=== PATIENT | female | born 1970 | race Caucasian/White ===

== ENCOUNTER → 2017-08-14 | Outpatient (CLI) | payer BC | LOC: M WHC 15:32 | DX: Z12.31 Encounter for screening mammogram for malignant neoplasm of breast (principal) | CPT/HCPCS: 77067 ==

== ENCOUNTER → 2018-07-04 | Outpatient (CLI) | payer BC ==
[2018-07-04 19:44] LABS: ALBUMIN 3.8 GM/DL (3.2-5.2); ALBUMIN/GLOBULIN RATIO 1.41 (1.00-1.93); ALKALINE PHOSPHATASE 94 U/L (45-117); ALT/SGPT 30 U/L (12-78); ANION GAP 7 MEQ/L (8-16); AST/SGOT 19 U/L (7-37); BILIRUBIN,TOTAL 0.3 MG/DL (0.2-1.0); BLOOD UREA NITROGEN 21 MG/DL (7-18); CALCIUM LEVEL 8.7 MG/DL (8.5-10.1); CARBON DIOXIDE LEVEL 27 MEQ/L (21-32); CHLORIDE LEVEL 109 MEQ/L (98-107); CREATININE FOR GFR 1.08 MG/DL (0.55-1.30); GLOMERULAR FILTRATION RATE 57.4 (>58); GLUCOSE, FASTING 110 MG/DL (70-100); POTASSIUM SERUM 4.1 MEQ/L (3.5-5.1); SODIUM LEVEL 143 MEQ/L (136-145); TOTAL PROTEIN 6.5 GM/DL (6.4-8.2)
[2018-07-04 19:46] LABS: BASO # 0.1 10^3/uL (0.0-0.2); BASO % 0.7 % (0.0-1.0); EOS # 0.4 10^3/uL (0.0-0.50); EOS % 6.4 % (0.0-3.0); HEMATOCRIT 41.2 % (36.0-47.0); HEMOGLOBIN 13.7 g/dl (12.0-15.5); IMMATURE GRANULOCYTE % 0.7 % (0-3.0); LYMPH # 2.3 10^3/uL (1.5-4.5); LYMPH % 34.5 % (24.0-44.0); MEAN CORPUSCULAR HEMOGLOBIN 29.7 pg (27.0-33.0); MEAN CORPUSCULAR HGB CONC 33.3 g/dl (32.0-36.5); MEAN CORPUSCULAR VOLUME 89.4 fl (80.0-96.0); MONO # 0.5 10^3/uL (0.0-0.8); MONO % 7.9 % (0.0-5.0); NEUTROPHILS # 3.3 10^3/uL (1.8-7.7); NEUTROPHILS % 49.8 % (36.0-66.0); PLATELET COUNT, AUTOMATED 274 10^3/uL (150-450); RED BLOOD COUNT 4.61 10^6/uL (4.00-5.40); WHITE BLOOD COUNT 6.7 10^3/uL (4.0-10.0)
== END ==
LOC: M WUC 17:48
DX: R10.11 Right upper quadrant pain (principal)
CPT/HCPCS: 80053

== ENCOUNTER → 2018-07-05 | Outpatient (CLI) | payer BC | LOC: M RAD 08:32 | DX: K76.89 Other specified diseases of liver (principal); R10.11 Right upper quadrant pain | CPT/HCPCS: 76705 ==

== ENCOUNTER → 2018-08-15 | Outpatient (CLI) | payer BC ==
--- NOTE | 2018-08-16 08:21 | REPMRS ---
Patient History The patient states she has not had a clinical breast exam in over a year. Patient is postmenopausal. Family history of endometrial cancer at age 50 or over in maternal aunt, prostate cancer at age 50 or over in paternal grandfather, prostate cancer in maternal grandfather. No Hormone Replacement Therapy Digital Woman Screen Mammo: August 15, 2018 - Exam #: [id number] Bilateral CC and MLO view(s) were taken. Technologist: Sumi Mendez, Technologist Prior study comparison: August 14, 2017, digital woman screen mammo performed at [facility]. August 04, 2016, digital woman screen mammo performed at [facility]. July 27, 2015, digital woman screen mammo performed at [facility]. FINDINGS: The breast tissue is almost entirely fat. There has been no change in the appearance of the mammogram from the prior studies. There is no interval development of dominant mass, architectural distortion, or clustered microcalcification typical of malignancy. 3-D tomosynthesis shows no additional findings. Assessment: BI-RADS/ACR category 1 mammogram. Negative. Recommendation Routine screening mammogram of both breasts in 1 year (for women over age 40). This patient's Lifetime Breast Cancer RIsk is estimated at 4.6 %. This mammogram was interpreted with the aid of an FDA-approved computer-aided dectection system. Electronically Signed By: Isaac Izquierdo MD 08/16/18 0821
== END ==
LOC: M WHC 16:14
PROVIDERS: ATTEND Nurse Practitioner Adult Health
DX: Z12.31 Encounter for screening mammogram for malignant neoplasm of breast (principal); Z78.0 Asymptomatic menopausal state

== ENCOUNTER → 2018-11-19 | Outpatient (CLI) | payer BC ==
[~2018-11-19] MED LIST: E-Z-GAS II EFFERVESCENT PACKET (SODIUM BICARB./CITRIC ACID/SIMETHICONE) As Ordered ONE; E-Z-HD 98% w/w 340GM SUSP BTL As Ordered ONE; E-Z-PAQUE 96% w/w SUSP 176GM BTL As Ordered ONE
--- NOTE | 2018-11-19 17:26 | REP ---
Upper GI air contrast The procedure was performed under the direct supervision of Dr. Izquierdo. The images were reviewed with Dr. Izquierdo The line supply film shows no organomegaly or pathological masses. The intestinal gas pattern is non-specific. There are surgical clips noted in the mid abdomen bilaterally. Liquid barium and gas producing crystals were given in the erect position as well as liquid barium in the prone oblique position in order to perform a double contrast upper GI examination. The oral and pharyngeal stages of deglutition are unremarkable. Esophageal transport is prompt and efficient and there is no esophagitis, stricture, mucosal ring or hiatal hernia. There is gastroesophageal reflux demonstrated to above the level of the [place]inth[place]. The stomach castro are normally outlined . The rugal folds are smooth and regular. There is no gastritis neoplasm or ulcer disease. There are thickened folds in the duodenum which may represent duodenitis. There is no sherin ulcer identified. The visualized portion of the proximal small bowel appears normal in course and caliber. Impression: 1. There is gastroesophageal reflux demonstrated to above the level of the cinth[place]. 2. There are thickened folds in the duodenum which may represent duodenitis. There is no sherin ulcer identified. 1.4 minutes of fluoro time was utilized for this procedure. Reviewed by TONY Patel 11/19/2018 04:03 P Electronically Signed by Tristen Izquierdo MD 11/19/2018 05:17 P
== END ==
LOC: M RAD 10:41
PROVIDERS: ATTEND Nurse Practitioner Adult Health
DX: R10.9 Unspecified abdominal pain (principal)

== ENCOUNTER → 2020-03-11 | Outpatient (CLI) | payer BC ==
[2020-04-27 13:12] LABS: ANTINUCLEAR ANTIBODIES DIRECT See Separate Report
[2020-05-08 16:07] LABS: ALBUMIN 3.6 GM/DL (3.2-5.2); ALT/SGPT 30 U/L (12-78); BILIRUBIN,TOTAL 0.4 MG/DL (0.2-1.0); BLOOD UREA NITROGEN 12 MG/DL (7-18); CALCIUM LEVEL 8.7 MG/DL (8.5-10.1); CARBON DIOXIDE LEVEL 28 MEQ/L (21-32); CHLORIDE LEVEL 114 MEQ/L (98-107); GLOMERULAR FILTRATION RATE > 60.0 (>51); POTASSIUM SERUM 4.2 MEQ/L (3.5-5.1); RHEUMATOID FACTOR QUANT < 10.0 IU/ML (<15.0); SODIUM LEVEL 145 MEQ/L (136-145); TOTAL 25(OH) VITAMIN D 27.4 NG/ML (30.0-100.0); TOTAL PROTEIN 6.4 GM/DL (6.4-8.2); URIC ACID 3.7 MG/DL (2.6-6.0)
[2020-05-08 16:09] LABS: GLUCOSE, FASTING 110 MG/DL (70-100)
== END ==
LOC: M LAB 07:07
PROVIDERS: ATTEND Nurse Practitioner Adult Health
DX: E55.9 Vitamin D deficiency, unspecified (principal); Z13.220 Encounter for screening for lipoid disorders; Z13.29 Encounter for screening for other suspected endocrine disorder; M79.10 Myalgia, unspecified site

== ENCOUNTER → 2020-04-14 | Outpatient (CLI) | payer BC ==
--- NOTE | 2020-04-14 16:15 | REPMRS ---
Patient History The patient states she has not had a clinical breast exam in over a year. Family history of endometrial cancer at age 50 or over in maternal aunt, prostate cancer at age 50 or over in paternal grandfather, prostate cancer in maternal grandfather. No Hormone Replacement Therapy 3D TOMOSYNTHESIS WAS PERFORMED. The [facility] lifetime risk for breast cancer is 4.5%. WILLIAMS Blandon. Digital Woman Screen Mammo: April 14, 2020 - Exam #: [id number] Bilateral CC and MLO view(s) were taken. Technologist: Ladan Beckett, Technologist Prior study comparison: August 15, 2018, bilateral digital woman screen mammo performed at [facility]. August 14, 2017, digital woman screen mammo performed at [facility]. FINDINGS: There are scattered fibroglandular densities. There is a fairly symmetric fibroglandular pattern in both breasts. There has been no interval development of masses, areas of architectural distortion or clusters of microcalcifications typical of malignancy. There are small intramammary lymph nodes again seen on the left. Assessment: BI-RADS/ACR category 2 mammogram. Benign Findings. Recommendation Routine screening mammogram of both breasts in 1 year (for women over age 40). This mammogram was interpreted with the aid of an FDA-approved computer-aided dectection system. Electronically Signed By: Carlos Zavala MD 04/14/20 0769
--- NOTE | 2020-04-29 15:37 | DEXA ---
AP SPINE L1 - L4 1.022 -1.4 -0.9 LT FEMUR TOTAL 0.906 -0.8 -0.3 LT NECK 0.825 -1.5 -0.7 RT FEMUR TOTAL 0.879 -1.0 -0.5 RT NECK 0.796 -1.7 -0.9 TOTAL BODY TOTAL OTHER COMMENTS: There is low bone density of the spine and hips. The density of the spine has decreased 1.4% since the initial exam on 08/01/2004. The increased 0.9% since most recent exam on 06/21/2012. The density of the left hip has increased 2.6% since the initial exam on 08/01/2004. The density of the left hip has increased 1.2% since the most recent exam on 06/21/2012. The density of the right hip has increased 4.0% since the initial exam on 08/01/2004. The density of the right hip has increased 1.9% since the most recent exam on 06/21/2012. FOLLOW-UP: Recommendation for the next bone density exam: 2 years. VERONICA
== END ==
LOC: M WHC 15:29
PROVIDERS: ATTEND Nurse Practitioner Adult Health
DX: Z12.31 Encounter for screening mammogram for malignant neoplasm of breast (principal); Z13.820 Encounter for screening for osteoporosis

== ENCOUNTER → 2020-10-02 | Outpatient (CLI) | payer BC ==
[~2020-10-02] MED LIST changes: -E-Z-GAS II EFFERVESCENT PACKET (SODIUM BICARB./CITRIC ACID/SIMETHICONE) As Ordered ONE; -E-Z-HD 98% w/w 340GM SUSP BTL As Ordered ONE; -E-Z-PAQUE 96% w/w SUSP 176GM BTL As Ordered ONE; +IBUP80TA PO; +PROTPAK PO
== END ==
LOC: M LABSMTC 08:17
PROVIDERS: ATTEND Anesthesiology
DX: Z01.812 Encounter for preprocedural laboratory examination (principal); Z20.822 Contact with and (suspected) exposure to COVID-19

== ENCOUNTER 2020-10-07 10:47 | Day surgery (SDC) | payer BC ==
[~2020-10-07] VITALS: Ht 157.5 cm; Wt 77.1 kg
[~2020-10-07 10:47] MED LIST changes: +LIDOCAINE 2% 100MG/5ML SDV (FOR ANES.) As Ordered ONE; +NS 1,000 ML IV ONE; +fentaNYL 100 MCG/2 ML INJECTION (J3010) As Ordered ONE; +propofoL 200 MG/20 ML VIAL As Ordered ONE
--- NOTE | 2020-10-07 12:43 | ROOR ---
Patient Name: Blessing Khan Procedure Date: 10/07/2020 12:29 PM Date of : 1970 Age: 49 Room: [facility] Gender: Female Note Status: Finalized Procedure: Upper GI endoscopy Indications: Dyspepsia, Heartburn, Abnormal UGI series Providers: Germán JONES MD Referring MD: Olga Ruiz NP Requesting Provider: Medicines: Monitored Anesthesia Care Complications: No immediate complications. Procedure: Pre-Anesthesia Assessment: - The heart rate, respiratory rate, oxygen saturations, blood pressure, adequacy of pulmonary ventilation, and response to care were monitored throughout the procedure. The Endoscope was introduced through the mouth, and advanced to the third part of duodenum. The upper GI endoscopy was accomplished without difficulty. The patient tolerated the procedure well. Findings: The esophagus was normal. The stomach was normal. The examined duodenum was normal. Three biopsies were obtained in the gastric antrum, in the first portion of the duodenum and in the second portion of the duodenum with cold forceps for histology. Impression: - Normal esophagus. - Normal stomach. - Normal examined duodenum. - Three biopsies were obtained in the gastric antrum, in the first portion of the duodenum and in the second portion of the duodenum. Recommendation: - Await pathology results. - Telephone endoscopist for pathology results in 2 weeks. - Follow an antireflux regimen. - Continue present medications. Procedure Code(s): --- Professional --- 41673, Esophagogastroduodenoscopy, flexible, transoral; with biopsy, single or multiple Diagnosis Code(s): --- Professional --- R93.3, Abnormal findings on diagnostic imaging of other parts of digestive tract R12, Heartburn R10.13, Epigastric pain CPT copyright 2019 [employer]. All rights reserved. The codes documented in this report are preliminary and upon solid tire finisher review may be revised to meet current compliance requirements. Germán Jones MD Germán JONES MD 10/07/2020 12:43:13 PM Electronically signed by Germán JONES MD Number of Addenda: 0 Note Initiated On: 10/07/2020 12:29 PM Estimated Blood Loss: Estimated blood loss: none.
--- NOTE | 2020-10-07 13:05 | ROOR ---
Patient Name: Blessing Khan Procedure Date: 10/07/2020 12:30 PM Date of : 1970 Age: 49 Room: [facility] Gender: Female Note Status: Finalized Procedure: Colonoscopy Indications: Screening for colorectal malignant neoplasm Providers: Germán JONES MD Referring MD: Olga Ruiz NP Requesting Provider: Medicines: Monitored Anesthesia Care Complications: No immediate complications. Procedure: Pre-Anesthesia Assessment: - The heart rate, respiratory rate, oxygen saturations, blood pressure, adequacy of pulmonary ventilation, and response to care were monitored throughout the procedure. The Colonoscope was introduced through the anus and advanced to the terminal ileum, with identification of the appendiceal orifice and IC valve. The colonoscopy was performed without difficulty. The patient tolerated the procedure well. The quality of the bowel preparation was good. Findings: The perianal and digital rectal examinations were normal. Three sessile polyps were found in the splenic flexure, hepatic flexure and cecum. The polyps were 5 mm in size. These polyps were removed with a cold snare. Resection and retrieval were complete. Small Internal Hemorrhoids. The exam was otherwise without abnormality on direct and retroflexion views. Impression: - Three 5 mm polyps at the splenic flexure, at the hepatic flexure and in the cecum, removed with a cold snare. Resected and retrieved. - Small Internal Hemorrhoids. - The examination was otherwise normal on direct and retroflexion views. Recommendation: - Repeat colonoscopy in 3 years for surveillance. Procedure Code(s): --- Professional --- 47827, Colonoscopy, flexible; with removal of tumor(s), polyp(s), or other lesion(s) by snare technique Diagnosis Code(s): --- Professional --- K63.5, Polyp of colon Z12.11, Encounter for screening for malignant neoplasm of colon CPT copyright 2019 [employer]. All rights reserved. The codes documented in this report are preliminary and upon beauty counselor review may be revised to meet current compliance requirements. Germán Jones MD Germán JONES MD 10/07/2020 1:04:30 PM Electronically signed by Germán JONES MD Number of Addenda: 0 Note Initiated On: 10/07/2020 12:30 PM Estimated Blood Loss: Estimated blood loss: none.
[2020-10-07 13:41] VITALS: BP 118/74
== END 2020-10-07 13:43 | disposition home or self-care (01) ==
LOC: M OPP 10:47
PROVIDERS: ATTEND Internal Medicine Gastroenterology
DX: Z12.11 Encounter for screening for malignant neoplasm of colon (principal); K63.5 Polyp of colon; K64.8 Other hemorrhoids; R93.3 Abnormal findings on diagnostic imaging of other parts of digestive tract; R10.13 Epigastric pain; K21.9 Gastro-esophageal reflux disease without esophagitis; Z79.899 Other long term (current) drug therapy; Z88.0 Allergy status to penicillin
CPT/HCPCS: 43239; 45385; 88305; J3010

== ENCOUNTER → 2020-11-15 | Outpatient (REF) ==
[~2020-11-15] MED LIST changes: -LIDOCAINE 2% 100MG/5ML SDV (FOR ANES.) As Ordered ONE; -NS 1,000 ML IV ONE; -fentaNYL 100 MCG/2 ML INJECTION (J3010) As Ordered ONE; -propofoL 200 MG/20 ML VIAL As Ordered ONE
== END ==
LOC: M LABSMTC 11:28
PROVIDERS: ATTEND Pediatrics
DX: Z11.52 Encounter for screening for COVID-19 (principal)

== ENCOUNTER → 2021-02-21 | Outpatient (REF) | payer BC | LOC: M LAB REF 20:07 | PROVIDERS: ATTEND Physician Assistant | DX: N39.0 Urinary tract infection, site not specified (principal) ==

== ENCOUNTER → 2021-02-22 | Outpatient (REF) | payer BC | LOC: M LAB REF 14:44 | PROVIDERS: ATTEND Physician Assistant | DX: N39.0 Urinary tract infection, site not specified (principal) ==

== ENCOUNTER → 2021-02-28 | Outpatient (CLI) | payer BC ==
--- NOTE | 2021-02-28 10:59 | REP ---
INDICATION: LOWER ABDOMINAL PAIN. COMPARISON: Ultrasound right upper quadrant 07/05/2018 TECHNIQUE: Noncontrast scanning through the abdomen/pelvis with coronal and sagittal reconstructions. FINDINGS: CT abdomen: There is a 5 mm pleural base nodule lateral basal segment the right lower lobe in the posterior axillary line. Some minor curvilinear fibrotic change in the medial segment of the right middle lobe anterior right lung base. There is also a 5 mm subpleural nodule in the lateral basal segment of the left lower lobe. Heart is not enlarged there is no pericardial thickening or effusion. No hiatal hernia. The liver shows a 7 mm hypodensity in the right hepatic lobe posteriorly and inferiorly corresponding to ultrasound finding three years ago. The remainder of the liver, spleen, gallbladder, stomach, pancreas, adrenal glands in the abdominal course of the small bowel loops appeared unremarkable. The kidneys show no mass, cyst, stone or hydronephrosis. No hydroureter or stone. Stool and gas in the abdominal portion of colon without signs of colitis or diverticulitis noted. There are few scattered surgical clips in the anterior mid abdomen near the junction of the Paddock flexure and transverse colon as well as at the distal tip of the cecum. No aortic aneurysm, periaortic, other retroperitoneal or mesenteric pathologic sized lymphadenopathy abdominal course of the colon without colitis or diverticulitis and no stricture or mass. See no evidence of perforation or free air in the abdomen and pelvis on lung windows review of all slices. Bone window review shows the the spine with some minor age-related changes and no acute compression deformity or destructive lesion. Visualized ribs intact. CT pelvis: The bony sacrum, SI joints, pelvis and hips show no acute finding. Small bone island in the posterior acetabular column on the right as a benign finding. The distal left colon, sigmoid and rectum were unremarkable. Distal small bowel loops intact with clips at the cecal tip. No visible appendix seen. Uterus absent and the vaginal cuff intact. Bladder shows no mass, wall thickening, stone or dilatation of distal ureters adjacent to it in the deep pelvis. No pelvic mass or lymphadenopathy. There is no ventral or inguinal hernia nor pathologic sized inguinal adenopathy. Small bowel loops deep pelvis were unremarkable. IMPRESSION: 1. No CT evidence of renal, ureteral or bladder stone. No hydronephrosis or hydroureter. Kidneys without mass or other acute finding. 2. Other solid organs in the upper abdomen, gallbladder, stomach, colon and small bowel loops intact. No ascites or free air. <Electronically signed by Kyrie Parsons > 02/28/21 [id number]
== END ==
LOC: M RAD 09:26
PROVIDERS: ATTEND Physician Assistant
DX: R10.30 Lower abdominal pain, unspecified (principal); M54.5 Low back pain

== ENCOUNTER → 2021-03-10 | Outpatient (CLI) | payer BC ==
[2021-03-10 08:08] LABS: HEMATOCRIT 44.5 % (36.0-47.0); HEMOGLOBIN 14.8 g/dl (12.0-15.5); MEAN CORPUSCULAR HEMOGLOBIN 29.4 pg (27.0-33.0); MEAN CORPUSCULAR HGB CONC 33.3 g/dl (32.0-36.5); MEAN CORPUSCULAR VOLUME 88.5 fl (80.0-96.0); PLATELET COUNT, AUTOMATED 293 10^3/uL (150-450); RED BLOOD COUNT 5.03 10^6/uL (4.00-5.40); WHITE BLOOD COUNT 6.3 10^3/uL (4.0-10.0)
[2021-03-10 08:42] LABS: ALBUMIN 3.6 GM/DL (3.2-5.2); BILIRUBIN,TOTAL 0.5 MG/DL (0.2-1.0); CHOLESTEROL RISK RATIO 4.875 (<5); CREATININE FOR GFR 1.05 MG/DL (0.55-1.30); GLOMERULAR FILTRATION RATE 58.6 (>51); POTASSIUM SERUM 4.4 MEQ/L (3.5-5.1); THYROID STIMULATING HORMONE 2.42 uIU/ML (0.358-3.740); TOTAL PROTEIN 6.6 GM/DL (6.4-8.2)
[2021-03-10 09:14] LABS: TOTAL 25(OH) VITAMIN D 24.2 NG/ML (30.0-100.0)
== END ==
LOC: M LAB 07:32
PROVIDERS: ATTEND Nurse Practitioner Adult Health
DX: E55.9 Vitamin D deficiency, unspecified (principal); Z13.29 Encounter for screening for other suspected endocrine disorder; Z13.220 Encounter for screening for lipoid disorders

== ENCOUNTER → 2021-03-25 | Outpatient (REF) | payer BC ==
[2021-03-25 10:30] LABS: APPEARANCE, URINE CLEAR (CLEAR); BACTERIA, URINE AUTO NEGATIVE (NEGATIVE); BILIRUBIN, URINE AUTO NEGATIVE (NEGATIVE); BLOOD, URINE BLOOD NEGATIVE (NEGATIVE); COLOR, URINE YELLOW (YELLOW); GLUCOSE, URINE (UA) AUTO NEGATIVE (NEGATIVE); KETONE, URINE AUTO NEGATIVE (NEGATIVE); LEUKOCYTE ESTERASE, URINE AUTO NEGATIVE (NEGATIVE); MUCUS, URINE SMALL (NEGATIVE); NITRITE, URINE AUTO NEGATIVE (NEGATIVE); PROTEIN, URINE AUTO NEGATIVE (NEGATIVE); RBC, URINE AUTO 1 /HPF (0-3); SPECIFIC GRAVITY URINE AUTO 1.017 (1.002-1.035); SQUAMOUS EPITHELIAL CELL UR AU 0 /HPF (0-6); UROBILINOGEN, URINE AUTO 0.2 mg/dL (0.0-2.0); WBC, URINE AUTO 0 /HPF (0-3)
== END ==
LOC: M SFHCPLAZ 09:29
PROVIDERS: ATTEND Nurse Practitioner Adult Health
DX: R31.9 Hematuria, unspecified (principal)

== ENCOUNTER → 2021-05-31 | Outpatient (CLI) | payer BC ==
--- NOTE | 2021-05-31 16:48 | REPMRS ---
Patient History The patient states she has not had a clinical breast exam in over a year. Family history of endometrial cancer at age 50 or over in maternal aunt, prostate cancer at age 50 or over in paternal grandfather, prostate cancer in maternal grandfather. No Hormone Replacement Therapy Patient states no breast complaints today. Patient has signed MRS History Sheet. Digital Woman Screen Mammo: May 31, 2021 - Exam #: [id number] Bilateral CC and MLO view(s) were taken. Technologist: Deb Boggs, Technologist Prior study comparison: April 14, 2020, bilateral digital woman screen mammo performed at [facility]. August 15, 2018, bilateral digital woman screen mammo performed at [facility]. FINDINGS: The breast tissue is almost entirely fat. Screening. Digital screening (2D) mammography was performed bilaterally in the CC and MLO projections. Additionally, breast tomosynthesis (3D mammography) was performed bilaterally in the CC and MLO projections. Todays exam was compared to the prior exam/exams. By history, the patient has no complaints of a palpable breast abnormality or other significant breast complaints. The Volpara volumetric breast density category is A, the breasts are almost entirely fatty. There are stable, benign, intramammary lymph nodes, bilaterally. The breasts are unchanged in size and shape. There are no lexie-soft tissue densities or spiculated masses. There is no internal architectural distortion. There are no suspicious lexie-calcific clusters. Skin thickening or nipple retraction is not present. IMPRESSION: BI-RADS Category 2- Benign Findings. There is no evidence of malignant alteration of the breasts. Followup examination recommended in one year. The lifetime Tyrer-Cuzick score is 4.4% This mammogram was read with the assistance of [employer],an FDA approved computer aided detection system for mammography. Negative x-ray reports should not delay surgical consultation if a dominant or clinically suspicious mass is present. Not all breast cancers can be identified by mammography. Therefore, we recommend that you continue to perform regular breast self-examination and physical examination and then promptly contact your physician of any concerns or changes. Adenosis and dense breasts may obscure an underlying neoplasm. No significant changes when compared with prior studies. Assessment: BI-RADS/ACR category 2 mammogram. Benign Findings. Recommendation Routine screening mammogram of both breasts in 1 year. Electronically Signed By: David Cervantes MD 05/31/21 [id number]
== END ==
LOC: M WHC 15:14
PROVIDERS: ATTEND Nurse Practitioner Adult Health
DX: Z12.31 Encounter for screening mammogram for malignant neoplasm of breast (principal)

== ENCOUNTER → 2022-06-15 | Outpatient (CLI) | payer BC | LOC: M WHC 15:50 | PROVIDERS: ATTEND Nurse Practitioner Adult Health | DX: Z12.31 Encounter for screening mammogram for malignant neoplasm of breast (principal) ==

== ENCOUNTER → 2022-06-21 | Outpatient (CLI) | payer BC ==
[2022-06-21 12:47] LABS: ALBUMIN 3.8 G/DL (3.2-5.2); ALT/SGPT 26 U/L (7.0-40); BILIRUBIN,TOTAL 0.6 MG/DL (0.3-1.2); BLOOD UREA NITROGEN 21 MG/DL (9-23); CALCIUM LEVEL 9.1 MG/DL (8.5-10.1); CARBON DIOXIDE LEVEL 26 MMOL/L (20-31); CHLORIDE LEVEL 107 MMOL/L (98-107); CHOLESTEROL LEVEL 204 MG/DL (<200); CHOLESTEROL RISK RATIO 3.96 (<5); CREATININE FOR GFR 1.01 MG/DL (0.55-1.30); GLOMERULAR FILTRATION RATE > 60.0 (>51); GLUCOSE, FASTING 110 MG/DL (60-100); HDL CHOLESTEROL 51.5 MG/DL (>40); LDL CHOLESTEROL 130.1 MG/DL (<100); NON-HDL-C 153 MG/DL; POTASSIUM SERUM 4.4 MMOL/L (3.5-5.1); SODIUM LEVEL 143 MMOL/L (136-145); THYROID STIMULATING HORMONE 2.303 uIU/ML (0.55-4.78); TOTAL 25(OH) VITAMIN D 68.2 NG/ML (20.0-100.0); TOTAL PROTEIN 6.4 G/DL (5.7-8.2); TRIGLYCERIDES LEVEL 112 MG/DL (<150)
== END ==
LOC: M LAB 08:15
PROVIDERS: ATTEND Nurse Practitioner Adult Health
DX: Z00.00 Encounter for general adult medical examination without abnormal findings (principal); R53.83 Other fatigue; E55.9 Vitamin D deficiency, unspecified; Z13.29 Encounter for screening for other suspected endocrine disorder

== ENCOUNTER → 2022-12-29 | Outpatient (REF) | LOC: M EMP 08:51 | PROVIDERS: ATTEND Family Medicine | DX: Z20.822 Contact with and (suspected) exposure to COVID-19 (principal) ==

== ENCOUNTER → 2023-05-15 | Outpatient (CLI) | payer BC ==
[2023-05-15 07:49] LABS: HEMATOCRIT 43.9 % (36.0-47.0); HEMOGLOBIN 14.8 g/dl (12.0-15.5); MEAN CORPUSCULAR HEMOGLOBIN 29.8 pg (27.0-33.0); MEAN CORPUSCULAR HGB CONC 33.7 g/dl (32.0-36.5); MEAN CORPUSCULAR VOLUME 88.5 fl (80.0-96.0); PLATELET COUNT, AUTOMATED 273 10^3/uL (150-450); RED BLOOD COUNT 4.96 10^6/uL (4.00-5.40)
[2023-05-15 08:15] LABS: ALKALINE PHOSPHATASE 80 U/L (46-116); ALT/SGPT 24 U/L (7.0-40); AST/SGOT 17 U/L (<34); BILIRUBIN,TOTAL 0.4 MG/DL (0.3-1.2); BLOOD UREA NITROGEN 16 MG/DL (9-23); CALCIUM LEVEL 8.6 MG/DL (8.5-10.1); CARBON DIOXIDE LEVEL 26 MMOL/L (20-31); CHLORIDE LEVEL 109 MMOL/L (98-107); CHOLESTEROL LEVEL 182 MG/DL (<200); CHOLESTEROL RISK RATIO 4.15 (<5); CREATININE FOR GFR 0.95 MG/DL (0.55-1.30); FREE T4 0.84 NG/DL (0.89-1.76); GLOMERULAR FILTRATION RATE > 60.0 (>51); GLUCOSE, FASTING 107 MG/DL (60-100); HDL CHOLESTEROL 43.8 MG/DL (>40); LDL CHOLESTEROL 107.2 MG/DL (<100); NON-HDL-C 138.2 MG/DL; POTASSIUM SERUM 4.4 MMOL/L (3.5-5.1); SODIUM LEVEL 139 MMOL/L (136-145); TOTAL 25(OH) VITAMIN D 33.5 NG/ML (20.0-100.0); TOTAL PROTEIN 6.2 G/DL (5.7-8.2); TRIGLYCERIDES LEVEL 155 MG/DL (<150)
[2023-05-15 15:56] LABS: ALBUMIN 3.5 G/DL (3.2-5.2)
== END ==
LOC: M LAB 07:02
PROVIDERS: ATTEND Nurse Practitioner Adult Health
DX: Z00.00 Encounter for general adult medical examination without abnormal findings (principal); E78.2 Mixed hyperlipidemia; E55.9 Vitamin D deficiency, unspecified

== ENCOUNTER → 2023-06-18 | Outpatient (CLI) | payer BC | LOC: M WHC 15:07 | PROVIDERS: ATTEND Nurse Practitioner Adult Health | DX: Z12.31 Encounter for screening mammogram for malignant neoplasm of breast (principal) ==

== ENCOUNTER → 2023-10-30 | Outpatient (CLI) | payer BC | LOC: M RAD 08:11 | PROVIDERS: ATTEND Nurse Practitioner Adult Health | DX: G43.911 Migraine, unspecified, intractable, with status migrainosus (principal) ==

== ENCOUNTER 2024-03-06 06:42 | Day surgery (SDC) | payer BC ==
[~2024-03-06] VITALS: Ht 157.5 cm; Wt 77.6 kg
[~2024-03-06 06:42] MED LIST changes: +AMIT10TA7 PO; +CINN500C12 PO; +IMIT50TA PO; +NS 1,000 ML IV ONE; +OMEG10002 PO; +THERTAB52 PO
[2024-03-06] MEDS ORDERED: propofoL 200 MG/20 ML VIAL As Ordered ONE (07:12)
[2024-03-06] MEDS ORDERED: LIDOCAINE 2% 100MG/5ML SDV (FOR ANES.) As Ordered ONE (07:13)
[2024-03-06] MEDS ORDERED: SIMETHICONE 40MG/0.6ML DROPS 30ML As Ordered ONE (07:15)
[2024-03-06 07:55] VITALS: TEMP 97.3
[2024-03-06] MEDS ORDERED: GLYCOPYRROLATE INJ 0.2 MG/ML 2 ML VIAL As Ordered ONE (08:11)
[2024-03-06 08:12] VITALS: BP 137/93; O2SAT 97
== END 2024-03-06 08:15 | disposition home or self-care (01) ==
LOC: M OPP 06:42
PROVIDERS: ATTEND Internal Medicine Gastroenterology
DX: Z12.11 Encounter for screening for malignant neoplasm of colon (principal); Z86.010 Personal history of colon polyps; D12.3 Benign neoplasm of transverse colon; G43.909 Migraine, unspecified, not intractable, without status migrainosus; Z79.1 Long term (current) use of non-steroidal anti-inflammatories (NSAID); Z79.899 Other long term (current) drug therapy; Z88.1 Allergy status to other antibiotic agents
CPT/HCPCS: 45385; 88305; J1596

== ENCOUNTER → 2024-07-14 | Outpatient (CLI) | payer BC ==
[~2024-07-14] MED LIST changes: -NS 1,000 ML IV ONE
[2024-07-14 07:58] LABS: HEMATOCRIT 44.2 % (36.0-47.0); HEMOGLOBIN 15.3 g/dl (12.0-15.5); MEAN CORPUSCULAR HEMOGLOBIN 30.4 pg (27.0-33.0); MEAN CORPUSCULAR HGB CONC 34.6 g/dl (32.0-36.5); MEAN CORPUSCULAR VOLUME 87.7 fl (80.0-96.0); PLATELET COUNT, AUTOMATED 269 10^3/uL (150-450); RED BLOOD COUNT 5.04 10^6/uL (4.00-5.40); WHITE BLOOD COUNT 6.2 10^3/uL (4.0-10.0)
[2024-07-14 08:27] LABS: ALBUMIN 3.5 G/DL (3.2-5.2); ALKALINE PHOSPHATASE 84 U/L (35-104); ALT/SGPT 38 U/L (7.0-40); AST/SGOT 16 U/L (<34); BILIRUBIN,TOTAL 0.3 MG/DL (0.3-1.2); BLOOD UREA NITROGEN 18 MG/DL (9-23); CALCIUM LEVEL 9.7 MG/DL (8.5-10.1); CARBON DIOXIDE LEVEL 26 MMOL/L (20-31); CHLORIDE LEVEL 109 MMOL/L (98-107); CHOLESTEROL LEVEL 226 MG/DL (<200); CHOLESTEROL RISK RATIO 5.17 (<5); CREATININE FOR GFR 0.97 MG/DL (0.55-1.30); GLOMERULAR FILTRATION RATE > 60.0 (>51); GLUCOSE, FASTING 119 MG/DL (60-100); HDL CHOLESTEROL 43.7 MG/DL (>40); LDL CHOLESTEROL 131.1 MG/DL (<100); NON-HDL-C 182.3 MG/DL; POTASSIUM SERUM 4.4 MMOL/L (3.5-5.1); SODIUM LEVEL 142 MMOL/L (136-145); TOTAL PROTEIN 6.4 G/DL (5.7-8.2); TRIGLYCERIDES LEVEL 256 MG/DL (<150)
[2024-07-14 08:30] LABS: FREE T4 0.92 NG/DL (0.89-1.76); THYROID STIMULATING HORMONE 4.988 uIU/ML (0.55-4.78)
[2024-07-14 08:31] LABS: TOTAL 25(OH) VITAMIN D 31.7 NG/ML (20.0-100.0)
== END ==
LOC: M LAB 07:13
PROVIDERS: ATTEND Nurse Practitioner Adult Health
DX: Z00.00 Encounter for general adult medical examination without abnormal findings (principal)

== ENCOUNTER → 2024-07-29 | Outpatient (CLI) | payer BC | LOC: M WHC 08:01 | PROVIDERS: ATTEND Nurse Practitioner Adult Health | DX: Z12.31 Encounter for screening mammogram for malignant neoplasm of breast (principal) ==

== ENCOUNTER → 2024-08-20 | Outpatient (CLI) | payer BC ==
[2024-08-20 08:15] LABS: LIPASE 34 U/L (12-53)
[2024-08-20 08:17] LABS: AMYLASE 36 U/L (30-118)
== END ==
LOC: M LAB 07:11
PROVIDERS: ATTEND Physician Assistant
DX: E66.3 Overweight (principal)

== ENCOUNTER 2024-09-01 07:44 | Outpatient (RCR) | payer BC | END 2024-09-05 | LOC: M PT 07:44 | PROVIDERS: ATTEND Nurse Practitioner Adult Health | DX: M76.60 Achilles tendinitis, unspecified leg (principal) ==

== ENCOUNTER 2024-09-15 13:53 | Outpatient (RCR) | payer BC | END 2024-10-03 | LOC: M PT 13:53 | PROVIDERS: ATTEND Nurse Practitioner Adult Health | DX: M76.60 Achilles tendinitis, unspecified leg (principal) ==